=== PATIENT | male | born 1940 | race Caucasian/White ===

== ENCOUNTER 2021-09-26 10:31 | Outpatient (CLI) | payer MEDICARE ==
[2021-09-26 11:29] LABS: Basophils # (Auto) 0.2 K/mm3 (0.0-0.1); Basophils % (Auto) 1.4 % (0.0-1.8); Eosinophils # (Auto) 0.1 K/mm3 (0.0-0.4); Eosinophils % (Auto) 0.9 % (0.0-4.3); Hematocrit 39.9 % (35.5-45.6); Hemoglobin 13.3 gm/dl (11.8-15.2); Lymphocytes # (Auto) 1.3 K/mm3 (1.2-5.4); Lymphocytes % (Auto) 11.8 % (13.4-35.0); Mean Corpuscular HGB Conc 33 % (32-34); Mean Corpuscular Volume 93 fl (84-94); Monocytes # (Auto) 0.5 K/mm3 (0.0-0.8); Monocytes % (Auto) 4.2 % (0.0-7.3); Platelet Count 308 K/mm3 (140-440); Red Blood Count 4.28 M/mm3 (3.65-5.03); Red Cell Distribution Width 15.4 % (13.2-15.2)
[2021-09-26 11:58] LABS: Alanine Aminotransferase 9 units/L (7-56); Blood Urea Nitrogen 11 mg/dL (9-20); Calcium 8.9 mg/dL (8.4-10.2); Chol/HDL Ratio 2.71 %; HDL Cholesterol 42 mg/dL (40-59); Hemolysis Index 58; LDL Cholesterol,Direct 59 mg/dL (50-130)
[2021-09-26 11:59] LABS: BUN/Creatinine Ratio 18
[2021-09-26 12:35] LABS: Bilirubin,Urine NEG (Negative); Blood,Urine NEG (Negative); Color,Urine Yellow (Yellow); Mucus,Urine FEW /HPF; Protein,Urine <15 mg/dL mg/dL (Negative)
--- NOTE | 2021-09-26 15:06 | Vascular Lab Report ---
DUPLEX DOPPLER LOWER EXTREMITY ARTERIAL, BILATERAL INDICATION / CLINICAL INFORMATION: PVD. TECHNIQUE: Arterial duplex examination of both lower extremities performed using B-mode, color flow a nd spectral Doppler assessment. FINDINGS: RIGHT: Common Femoral Artery: PSV 112 cm/sec. Biphasic waveform. Proximal SFA: PSV 32 cm/sec. Monophasic waveform. Mid SFA: Absent color Doppler blood flow. Distal SFA: Absent color Doppler blood flow. Popliteal Artery: PSV 26 cm/sec. Monophasic waveform. Posterior Tibial Artery: PSV 28 cm/sec. Monophasic waveform. Dorsalis Pedis Artery: PSV 16 cm/sec. Monophasic waveform. LEFT: Common Femoral Artery: PSV 141 cm/sec. Biphasic waveform. Proximal SFA: PSV 23 cm/sec. Monophasic waveform. Mid SFA: Absent color Doppler blood flow. Distal SFA: PSV 33 cm/sec. Monophasic waveform. Popliteal Artery: PSV 34 cm/sec. Monophasic waveform. Posterior Tibial Artery: PSV 28 cm/sec. Monophasic waveform. Dorsalis Pedis Artery: PSV 50 cm/sec. Monophasic waveform. ADDITIONAL FINDINGS: None. RIGHT SLIM: Not calculated. LEFT SLIM: Not calculated. IMPRESSION: 1. 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 There are associated monoph asic waveforms bilaterally. Ankle-Brachial Index (SLIM): - Calcified arteries > 1.4 - Normal = 0.9-1.4 - Mild PAD = 0.7-0.89 - Moderate PAD = 0.51-0.69 - Severe PAD < 0.5 Doppler Waveform: - Triphasic is normal. - Biphasic is abnormal if clear transition from triphasic signal along vascular tree. - Monophasic is abnormal. Scribed by: Mariya Woodruff RDMS, RVT, RMSKS Scribed: 09/26/2021 12:54 PM I have reviewed the images, agree with this report, and edited this report as needed. Signer Name: Deejay Dorantes MD Signed: 09/26/2021 3:01 PM Workstation Name: [id number]
== END 2021-09-26 10:32 | disposition home or self-care (01) ==
LOC: VAS 10:31
PROVIDERS: ATTEND Internal Medicine
DX: I73.9 Peripheral vascular disease, unspecified (principal); E78.5 Hyperlipidemia, unspecified; R53.83 Other fatigue; I10 Essential (primary) hypertension; Z00.00 Encounter for general adult medical examination without abnormal findings; R63.5 Abnormal weight gain; R39.11 Hesitancy of micturition; Z79.899 Other long term (current) drug therapy
CPT/HCPCS: 36415; 80053; 80061; 81001; 82306; 83036; 84153; 84443; 85025; 86592; 93925

== ENCOUNTER 2021-12-30 08:59 | Outpatient (CLI) | payer MEDICARE ==
[2021-12-30 09:56] LABS: Basophils % (Auto) 0.5 % (0.0-1.8); Eosinophils # (Auto) 0.1 K/mm3 (0.0-0.4); Eosinophils % (Auto) 1.4 % (0.0-4.3); Hematocrit 35.5 % (35.5-45.6); Hemoglobin 11.7 gm/dl (11.8-15.2); Lymphocytes # (Auto) 1.3 K/mm3 (1.2-5.4); Lymphocytes % (Auto) 18.1 % (13.4-35.0); Mean Corpuscular HGB Conc 33 % (32-34); Mean Corpuscular Volume 94 fl (84-94); Monocytes # (Auto) 0.5 K/mm3 (0.0-0.8); Monocytes % (Auto) 6.6 % (0.0-7.3); Platelet Count 445 K/mm3 (140-440); Red Blood Count 3.78 M/mm3 (3.65-5.03); Red Cell Distribution Width 12.7 % (13.2-15.2)
[2021-12-30 10:28] LABS: Blood Urea Nitrogen 19 mg/dL (9-20); Calcium 9.2 mg/dL (8.4-10.2); HDL Cholesterol 36 mg/dL (40-59); Hemolysis Index 1
[2021-12-30 11:02] LABS: Alanine Aminotransferase 10 units/L (7-56); Albumin 3.9 g/dL (3.9-5)
[2021-12-30 11:09] LABS: BUN/Creatinine Ratio 27
[2021-12-30 11:10] LABS: Chol/HDL Ratio 3.47 %; LDL Cholesterol,Direct 71 mg/dL (50-130)
[2022-01-03 07:31] LABS: HIV-1 Antibody Differentiation SEE SCANNED RESULT; HIV-2 Antibody Differentiation SEE SCANNED RESULT
== END 2021-12-30 09:00 | disposition home or self-care (01) ==
LOC: LAB 08:59
PROVIDERS: ATTEND Internal Medicine
DX: I10 Essential (primary) hypertension (principal); E78.5 Hyperlipidemia, unspecified; E55.9 Vitamin D deficiency, unspecified; R63.5 Abnormal weight gain; R39.11 Hesitancy of micturition; R79.9 Abnormal finding of blood chemistry, unspecified; R53.83 Other fatigue; Z00.00 Encounter for general adult medical examination without abnormal findings
CPT/HCPCS: 36415; 80053; 80061; 83036; 84153; 84443; 85025; 86592; 86689